=== PATIENT | male | born 1975 | race Hispanic/Latino ===

== ENCOUNTER 2020-05-26 00:51 | Emergency (ER) | payer SELFPAY ==
[~2020-05-26] VITALS: Ht 170.2 cm; Wt 79.5 kg
[~2020-05-26 00:51] MED LIST: FLEXERIL PO; KEFLEX500 MG PO; MEDDOSEPAK PO; TUSSIONEX1 ML PO
[2020-05-26 02:21] LABS: HEMATOCRIT 43.3 % (39.0-50.0); HEMOGLOBIN 15.1 g/dl (14.0-18.0); IMMATURE GRANULOCYTES 0.5 % (0.0-5.0); MEAN CELL VOLUME 86.9 fL CALC (80.0-100.0); MEAN CORPUSCULAR HGB 30.3 pG CALC (26.0-32.0); MEAN CORPUSCULAR HGB CONC 34.9 g/dL CAL (32.0-36.0); NEUT# 7.52 thou/uL (1.82-7.42); RED BLOOD COUNT 4.98 mill/uL (4.70-6.10); RED CELL DISTRI WIDTH 11.9 % (11.5-15.5)
[2020-05-26 02:38] LABS: ALBUMIN 4.6 g/dL (3.2-5.0); ALKALINE PHOSPHATASE 91 u/l (38-126); AMYLASE 37 u/l (30-110); ANION GAP 13 (6-22 (CALC)); BILIRUBIN, TOTAL 0.9 mg/dL (0.0-1.4); BUN 16 mg/dL (9-20); BUN/CREATININE RATIO 20 (12-20 (CALC)); CARBON DIOXIDE 25 mmol/l (22-30); CHLORIDE 101 mmol/l (95-108); CREATININE 0.8 mg/dL (0.7-1.3); GFR > 60 ML/MIN (>=60 (CALC)); GFR FOR AFR.AMER. > 60 ML/MIN (>=60 (CALC)); LIPASE < 10 u/l (23-300); POTASSIUM 3.8 mmol/l (3.5-5.1); SGOT/AST 27 u/l (17-59); SODIUM 135 mmol/l (137-146); TOTAL PROTEIN 7.3 g/dL (6.3-8.2)
[2020-05-26] MEDS ORDERED: AUGMENTIN500TAB PO (03:41)
[2020-05-26] MEDS ORDERED: PERCOCET 5/325M1 TAB PO (03:41)
[2020-05-26] MEDS ORDERED: CIPRODEX1 ML OT (03:42)
[2020-05-26 04:40] VITALS: BP 137/70
== END 2020-05-26 04:40 | disposition home or self-care (01) | DRG 153 ==
LOC: ED 00:51
PROVIDERS: Emergency Medicine
DX: H66.91 Otitis media, unspecified, right ear (principal); H60.91 Unspecified otitis externa, right ear